=== PATIENT | female | born 1950 | race Caucasian/White ===

== ENCOUNTER 2016-07-27 11:02 | Emergency (ER) | payer OTHER ==
[~2016-07-27] VITALS: Ht 162.6 cm; Wt 113.2 kg
[~2016-07-27 11:02] MED LIST: ALLO100T PO; ATOR-54 PO; BRIM0.1S OPB; CALC-354 PO; CPR500 PO; DORZ2SOL17 OP; IMD2X PO; LATA0.009 OPB; LOSA25TA18 PO; MAGN400T6 PO; MCRK20 PO; METF1000 PO; MULT-506 PO; OXYC1TAB3 PO; POTTAB2 PO; PRLSR20 PO
[2016-07-27 11:20] VITALS: BP 162/86; PULSE 77; TEMP 36.8; O2SAT 96; Ht 162.6 cm; Wt 113.2 kg
[2016-07-27] MEDS ORDERED: LATA0.5S OPB (11:50)
[2016-07-27] MEDS ORDERED: ALBI1INJ SQ (11:50)
[2016-07-27] MEDS ORDERED: INSDGIPEN SQ (11:53)
[2016-07-27] MEDS ORDERED: NVLGI/PEN SQ (11:53)
[2016-07-27] MEDS ORDERED: FERR1TAB13 PO (11:56)
[2016-07-27] MEDS ORDERED: CYAN1KIT3 SQ (11:56)
--- NOTE | 2016-07-27 13:05 | DIAGNOSTIC IMAGING REPORT ---
LEFT HUMERUS MIN 2 VIEWS ROUTINE, LEFT ELBOW MIN 3 VIEWS ROUTINE, LEFT WRIST MIN 3 VIEWS ROUTINE CLINICAL HISTORY: Fall. Left arm pain. COMPARISON STUDY: None. FINDINGS: There is an elbow effusion. There is a small nondisplaced fracture at the radial head. No dislocation. Soft tissue swelling within the left wrist. No fractures within the left humerus or left wrist. Severe degenerative changes at the first carpometacarpal joint. IMPRESSION: 1. Nondisplaced fracture at the radial head. 2. No fractures within the left humerus or left wrist. Electronically signed by: Justyn Beck M.D. 07/27/2016 1:03 PM Dictated Date/Time: 07/27/2016 12:59 PM
--- NOTE | 2016-07-27 13:23 | EMERGENCY ROOM VISIT NOTE ---
ED Visit Note First contact with patient: 11:58 CHIEF COMPLAINT: Left arm pain after a fall yesterday HISTORY OF PRESENT ILLNESS: Patient is a [id number] 65-year-old white female who presents to emergency department for evaluation of left arm pain after a fall yesterday. Patient reports that she was standing if you runs up on a kitchen stool, changing an overhead fluorescent light bulb, when she lost her balance and fell. She fell towards her left side. She did strike the left top of her head on the door, and tried to catch herself with her extended left arm. She did strike her left knee slightly, she is status post left total knee arthroplasty. She notes some discomfort medially, but is able to walk and bear weight without difficulty. Her primary complaint is left arm pain. She complains of pain from the mid humerus, down to her wrist. She notes posterior pain over the left elbow. She takes Tylenol and oxycodone chronically which she took this morning. She presently rates her discomfort a 4/10. She is unable to move the arm above shoulder height. Any attempts at movement causes discomfort. She is status post left rotator cuff repair. She denies any headache, lightheadedness or dizziness. She has been wearing an arm sling. REVIEW OF SYSTEMS: Review of systems as per HPI. All other systems reviewed were negative. 10 systems reviewed. PMH: Electronic medical records are reviewed and summarized as above/below. See Problem List. SOCIAL HISTORY: Patient lives at home with her . She does not smoke. PHYSICAL EXAM: Vital Signs: Reviewed nurse's notes. CONSTITUTIONAL: Patient is an obese 65-year-old white female who is awake and alert and in moderate distress due to her left arm pain. Examination of the left upper extremity notes slight swelling noted in the dorsum of the wrist. Otherwise skin is intact without ecchymosis. There is no obvious deformity. She does not have any pain on palpation of the clavicle or the acromioclavicular joint, and does not have any pain over the humeral head. She does have some tenderness to palpation in the midshaft of the humerus. Elbow does not demonstrate any significant joint effusion. She is tender over the olecranon and the radial head. No pain over the epicondyles. She does not have any discomfort in the midshaft of the radius or ulna, does have some discomfort over the distal radius. She does not have any anatomic snuffbox tenderness. She has discomfort with wrist extension and pronation and supination of the forearm. She can flex greater than 90, but cannot extend fully. Passively, shoulder can be internally and externally rotated fully. She has pain when she is flexed or abducted greater than 90. Left upper extremity is neurovascularly intact. EMERGENCY DEPARTMENT COURSE: X-rays of the left humerus, left elbow and left wrist were obtained. Findings are consistent with a radial head fracture. No fractures of the wrist for humerus are noted. Patient has her own arm sling that she can use. She is established with Dr. Moe, and was encouraged to follow-up with him for further care and evaluation of her elbow fracture, and her shoulder, as she had a rotator cuff repair in the past. Differential diagnoses entertained including wrist fracture, elbow fracture, elbow dislocation, proximal humerus fracture, rotator cuff tear, among others. LEFT HUMERUS MIN 2 VIEWS ROUTINE, LEFT ELBOW MIN 3 VIEWS ROUTINE, LEFT WRIST MIN 3 VIEWS ROUTINE CLINICAL HISTORY: Fall. Left arm pain. COMPARISON STUDY: None. FINDINGS: There is an elbow effusion. There is a small nondisplaced fracture at the radial head. No dislocation. Soft tissue swelling within the left wrist. No fractures within the left humerus or left wrist. Severe degenerative changes at the first carpometacarpal joint. IMPRESSION: 1. Nondisplaced fracture at the radial head. 2. No fractures within the left humerus or left wrist. Problem List Medical Problems: (1) Back pain Status: Chronic (2) DM2 (diabetes mellitus, type 2) Status: Chronic (3) Ectopic Status: Resolved (4) HLD (hyperlipidemia) Status: Chronic (5) HTN (hypertension) Status: Chronic (6) Portal hypertensive gastropathy Status: Chronic (7) Severe sepsis Status: Resolved Surgical Problems: (1) H/O colonoscopy Status: Chronic (2) History of esophagogastroduodenoscopy (EGD) Status: Chronic (3) History of oophorectomy, unilateral Permanent Comment: ectopic Status: Chronic (4) History of repair of rotator cuff Status: Resolved (5) History of total knee arthroplasty Status: Resolved (6) Hx of appendectomy Status: Resolved (7) S/P cholecystectomy Status: Chronic Current/Historical Medications Scheduled Albiglutide (Tanzeum), 30 MG SQ WK Allopurinol (Zyloprim), 100 MG PO DAILY Atorvastatin (Lipitor), 20 MG PO QPM Brimonidine Tartrate (Alphagan P Oph), 1 DROP OPB BID Calcium Carbonate-Cholecalcife (Caltrate 600+D), 1 TAB PO BID Cyanocobalamin (B-12 Compliance Injection), 1,000 MCG SQ UD Dorzolamide Hcl (Trusopt Oph), 1 DROPS OP TID Ferrous Sulfate (Kp Ferrous Sulfate), 325 TAB PO UD Insulin Aspart (Novolog Flexpen), 1 DOSE SQ UD Insulin Glargine (Lantus Solostar), 35 UNITS SQ QAM Latanoprost (Xalatan 0.005% Oph Ely), 1 DROPS OPB HS Losartan Potassium (Cozaar), 25 MG PO QPM Magnesium Oxide (Mag-Ox), 400 MG PO DAILY Metformin Hcl (Glucophage), 1,000 MG PO BID Multivitamin (Multivitamin), 1 TAB PO DAILY Omeprazole (Prilosec), 20 MG PO DAILY Scheduled PRN Oxycodone Ir (Roxicodone Ir), 5 MG PO Q6H PRN for Severe Pain Allergies Coded Allergies: Lisinopril (Unverified Allergy, Severe, COUGH, 07/27/16) Pioglitazone (Unverified Allergy, Unknown, ?, 07/27/16) Vital Signs Date Time Temp Pulse Resp B/P Pulse Ox O2 Delivery O2 Flow Rate FiO2 07/27/16 11:20 36.8 77 17 162/86 96 Room Air Departure Information Impression Primary Impression: Left radial head fracture Referrals Heath Mejia M.D. (PCP) Patient Instructions [facility] Additional Instructions Ibuprofen(Motrin, Advil) may be used for fever or pain. Use 600mg every six hours as needed. Take with food. Avoid using more than 2400mg in a 24 hour period. Do not use 2400mg per day for more than three consecutive days without physician direction. Prolonged inappropriate use can lead to stomach upset or ulcers. This medication can be taken if you need to drive, work, or perform activities which may be dangerous when taking narcotic pain medication. (AND/OR) Acetaminophen(Tylenol) may be used for fever or pain. Use 1000mg every six hours as needed. Avoid using more than 3000mg in a 24 hour period. This medication can be taken if you need to drive, work, or perform activities which may be dangerous when taking narcotic pain medication. Ice compresses for 20 minutes at a time four times daily for 2-3 days. Use the sling as instructed. Remove your arm from the sling 4-6 times a day and move all the joints around to keep them loose. Rest and elevate your injury. Continue current medications. Return to the ER immediately for any numbness, tingling, severe pain, extreme swelling in the extremity or as needed. Follow up with Dr. Moe this week for recheck of your injuries.
== END 2016-07-27 13:30 | disposition home or self-care (01) ==
LOC: C.EDB 11:02 → C.EDD 13:30
DX: S52.125A Nondisplaced fracture of head of left radius, initial encounter for closed fracture (principal); W22.09XA Striking against other stationary object, initial encounter; W17.89XA Other fall from one level to another, initial encounter; Z96.652 Presence of left artificial knee joint; Y93.89 Activity, other specified; E66.9 Obesity, unspecified; Z68.41 Body mass index [BMI] 40.0-44.9, adult; M54.9 Dorsalgia, unspecified; G89.29 Other chronic pain; E11.9 Type 2 diabetes mellitus without complications; E78.5 Hyperlipidemia, unspecified; I10 Essential (primary) hypertension; K31.89 Other diseases of stomach and duodenum; Z90.721 Acquired absence of ovaries, unilateral; Z90.49 Acquired absence of other specified parts of digestive tract; Z79.4 Long term (current) use of insulin; Z79.899 Other long term (current) drug therapy

== ENCOUNTER → 2016-08-18 | Outpatient (CLI) | payer OTHER ==
[~2016-08-18] MED LIST changes: +ALBI1INJ SQ; -CPR500 PO; +CYAN1KIT3 SQ; +FERR1TAB13 PO; -IMD2X PO; +INSDGIPEN SQ; -LATA0.009 OPB; +LATA0.5S OPB; -MCRK20 PO; +NVLGI/PEN SQ; -POTTAB2 PO
== END | disposition home or self-care (01) ==
LOC: C.PAPS 16:49
PROVIDERS: ATTEND Obstetrics & Gynecology
DX: D06.9 Carcinoma in situ of cervix, unspecified (principal)

== ENCOUNTER → 2016-11-03 | Outpatient (CLI) | payer OTHER ==
--- NOTE | 2016-11-03 14:05 | MAMMOGRAPHY REPORT ---
BILATERAL DIGITAL SCREENING MAMMOGRAM WITH CAD: 11/03/2016 CLINICAL HISTORY: Routine screening. Patient has no complaints. TECHNIQUE: Bilateral CC, MLO and repeat left MLO view with more anterior compression were obtained. Current study was also evaluated with a Computer Aided Detection (CAD) system. COMPARISON: Comparison is made to exams dated: 11/01/2015 mammogram, 11/20/2014 ultrasound, 11/20/2014 mammogram, 10/30/2014 mammogram, 10/28/2013 mammogram, and 10/27/2012 mammogram - [facility]. BREAST COMPOSITION: There are scattered areas of fibroglandular density in both breasts. FINDINGS: There are minimal vascular calcifications and scattered punctate benign-appearing microcalc ifications in the breasts. Stable intramammary lymph nodes in the right upper outer quadrant. Stabl e asymmetries in the lateral left breast. No suspicious mass, architectural distortion or cluster of suspicious microcalcifications is seen. IMPRESSION: ACR BI-RADS CATEGORY 1: NEGATIVE There is no mammographic evidence of malignancy. A 1 year screening mammogram is recommended. The pa tient will receive written notification of the results. Approximately 10% of breast cancers are not detected with mammography. A negative mammographic report should not delay biopsy if a clinically suggestive mass is present. Mag Nichols M.D. ay/:11/03/2016 10:33:43 Soaking Pit Operator: Sandrine BECK)(Juju), [facility] letter sent: Normal 1/2 BI-RADS Code: ACR BI-RADS Category 1: Negative
== END | disposition home or self-care (01) ==
LOC: C.MAMM 09:30
PROVIDERS: ATTEND Obstetrics & Gynecology
DX: Z12.31 Encounter for screening mammogram for malignant neoplasm of breast (principal)

== ENCOUNTER → 2016-11-18 | Outpatient (CLI) | payer OTHER | END | disposition home or self-care (01) | LOC: C.LABSPEC 15:41 | PROVIDERS: ATTEND Obstetrics & Gynecology | DX: N76.2 Acute vulvitis (principal) ==

== ENCOUNTER → 2017-11-09 | Outpatient (CLI) | payer OTHER ==
[~2017-11-09] MED LIST changes: -DORZ2SOL17 OP; +DORZ2SOL19 OP; +OXYC-90 PO; -OXYC1TAB3 PO
--- NOTE | 2017-11-09 15:10 | MAMMOGRAPHY REPORT ---
BILATERAL DIGITAL SCREENING MAMMOGRAM TOMOSYNTHESIS WITH CAD: 11/09/2017 CLINICAL HISTORY: Routine screening. Patient has no complaints. TECHNIQUE: The study was acquired using full field digital technology and interpreted from soft copy. Breast tomosynthesis in addition to standard 2D mammography was performed. Current study was also ev aluated with a Computer Aided Detection (CAD) system. COMPARISON: Comparison is made to exams dated: 11/03/2016 mammogram, 11/01/2015 mammogram, 11/20/2014 m ammogram, 10/30/2014 mammogram, 10/28/2013 mammogram, and 10/27/2012 mammogram - [facility] enter. BREAST COMPOSITION: There are scattered areas of fibroglandular density in both breasts. FINDINGS: There are 2 lobulated and circumscribed subcentimeter masses in the upper outer middle one third of the left breast, for which additional targeted ultrasound and possible additional mammograph ic views are recommended. There is a vascular ectasia in both breasts, similar to prior mammograms. A few benign punctate and rim calcifications in the right breast. No other suspicious mass, architectural distortion or cluste r of microcalcifications is seen. IMPRESSION: ACR BI-RADS CATEGORY 0: INCOMPLETE EVALUATION: NEED ADDITIONAL IMAGING EVALUATION The 2 lobulated and circumscribed subcentimeter masses in the upper outer left breast need additional evaluation. The patient will be called to schedule an appointment. Some breast cancers are not detected with mammography. A negative mammographic report should not lesli y biopsy if a clinically suggestive mass is present. Mag Nichols M.D. ay/:11/09/2017 12:51:11 Electric Golf Cart Repairers: RT Ezequiel(R)(M), [facility] letter sent: Addl Imaging 0 BI-RADS Code: ACR BI-RADS Category 0: Incomplete Evaluation: Need Additional Imaging Evaluation
== END | disposition home or self-care (01) ==
LOC: C.MAMM 09:49
PROVIDERS: ATTEND Family Medicine
DX: Z12.31 Encounter for screening mammogram for malignant neoplasm of breast (principal); N63.21 Unspecified lump in the left breast, upper outer quadrant

== ENCOUNTER → 2017-11-18 | Outpatient (CLI) | payer OTHER ==
--- NOTE | 2017-11-19 15:40 | MAMMOGRAPHY REPORT ---
UNILATERAL LEFT DIGITAL DIAGNOSTIC MAMMOGRAM TOMOSYNTHESIS AND LEFT ULTRASOUND: 11/18/2017 CLINICAL HISTORY: 67-year-old woman called back from screening mammography for 2 lobulated and circum scribed masses in the left upper outer breast. TECHNIQUE: Spot compression tomosynthesis left CC and MLO views were obtained. COMPARISON: Comparison is made to exams dated: 11/09/2017 mammogram, 11/03/2016 mammogram, 11/01/2015 ma mmogram, 11/20/2014 mammogram, 10/30/2014 mammogram, and 10/28/2013 mammogram - [facility]. BREAST COMPOSITION: There are scattered areas of fibroglandular density in left breast. FINDINGS: The supplemental spot compression tomosynthesis views demonstrate to persistent subcentimet er masses in left upper outer quadrant. The anterior mass in the upper outer middle one third of the breast is reniform and circumscribed with a central cleft, measuring 5.1 x 8.7 x 4.7 mm. The second smaller round circumscribed mass measures 4.6 x 3.4 mm. No associated architectural distortion or c alcification. Comparing back to prior available mammograms, these masses appear minimally increased in size from 2012 and although they could represent intramammary lymph nodes, further characterizatio n with ultrasound was performed. Targeted ultrasound was performed in the left upper outer quadrant. In the 2:00 axis, 9 cm from the nipple, there is a lobulated and circumscribed parallel mass with thin peripheral hypoechoic cortex a nd central isoechoic tissue, measuring 8.4 x 3.1 mm. This is most compatible with a benign intramamm vivian lymph node. The second circumscribed gently lobulated hypoechoic mass in the 130 left breast, 9 cm from the nipple measures 4.2 x 2.8 x 3.3 mm. Central blood flow is detected suggesting this repre sents a second lymph node. Given the possible increase in size comparing to remote mammograms, a paul rt interval follow-up left diagnostic tomosynthesis mammogram and repeat targeted ultrasound is recom mended to ensure stability in 6 months. IMPRESSION: ACR-BI-RADS CATEGORY 3: PROBABLY BENIGN, ULTRASOUND ACR-BI-RADS CATEGORY 3: PROBABLY MESHA GN 1. The two circumscribed subcentimeter masses in the left upper outer breast most likely correlate w ith benign intramammary lymph nodes. Given that they are possibly increased comparing to more remote mammograms including the 2012 mammogram yet have a generally normal morphology on ultrasound, a shor t interval follow-up left diagnostic tomosynthesis mammogram and repeat targeted ultrasound is recomm ended to ensure stability in 6 months. These results and recommendations were discussed with the patient at the time of the exam. Some breast cancers are not detected with mammography. A negative mammographic report should not lesli y biopsy if a clinically suggestive mass is present. Mag Nichols M.D. ay/:11/18/2017 14:52:07 Wharf Worker: Nivia Rizo, [facility]; Mag Nichols [facility] letter sent: Follow Up Recommended 3 OVERALL STUDY BIRADS: 3 Probably benign
== END | disposition home or self-care (01) ==
LOC: C.MAMM 12:38
PROVIDERS: ATTEND Family Medicine
DX: N63.21 Unspecified lump in the left breast, upper outer quadrant (principal)